=== PATIENT | female | born 1970 | race Caucasian/White ===

== ENCOUNTER 2022-07-03 23:54 | Emergency (ER) | payer SELFPAY ==
--- NOTE | 2022-07-04 00:50 | NUR ---
Patient was called to be triaged but was not present in the waiting room or outside of ER.
--- NOTE | 2022-07-04 01:30 | NUR ---
Patient was called to be triaged but was not present in the waiting room.
--- NOTE | 2022-07-04 01:50 | NUR ---
Patient was called to be triaged but was not present in the waiting room or outside of ER. PATIENT WAS NOT TRIAGED OR SEEN BY [facility].
== END 2022-07-04 01:30 | disposition left against medical advice (07) ==
LOC: ER 07-04 00:13
DX: Z53.21 Procedure and treatment not carried out due to patient leaving prior to being seen by health care provider (principal)

== ENCOUNTER 2023-10-07 12:57 | Emergency (ER) | payer OTHER ==
[~2023-10-07] VITALS: Ht 167.6 cm; Wt 76.2 kg
[2023-10-07] MEDS ORDERED: DEXAMETHASONE SOD PHOSPHATE 4 MG INJ IM ONE (13:30)
[2023-10-07] MEDS ORDERED: CEFTRIAXONE 1 G VIAL IM ONE (13:30)
[2023-10-07] MEDS ORDERED: CEFTRIAXONE 1 G VIAL ONE (13:35)
[2023-10-07] MEDS ORDERED: DEXAMETHASONE SOD PHOSPHATE 4 MG INJ ONE (13:35)
[2023-10-07] MEDS ORDERED: ALBU6.7H9 INH (13:46)
[2023-10-07] MEDS ORDERED: AZIT500T4 PO (13:46)
[2023-10-07 14:17] VITALS: BP 120/70; O2SAT 99
== END 2023-10-07 14:17 | disposition home or self-care (01) ==
LOC: ER 12:57
DX: J11.1 Influenza due to unidentified influenza virus with other respiratory manifestations (principal); F17.210 Nicotine dependence, cigarettes, uncomplicated; J45.909 Unspecified asthma, uncomplicated
CPT/HCPCS: 99284; 96372 ×2; J0696; J1100; A4606; A4663